=== PATIENT | female | born 1995 | race Two or more races ===

== ENCOUNTER 2021-04-29 22:04 | Emergency (ER) | payer OTHER ==
[2021-04-29 22:25] VITALS: BP 107/72; PULSE 80; RESP 18; TEMP 99.3
--- NOTE | 2021-04-29 23:24 | ED ---
Recheck HPI - General Chief Complaint: Recheck/Abnormal Lab/Rx Stated Complaint: Covid test Time Seen by Provider: 04/29/21 22:20 Source: patient Mode of arrival: ambulatory Limitations: no limitations - History of Present Illness Initial Comments: 25-year-old female presents to the emergency department for Covid testing. She needs this for international travel. No further complaints - Related Data Allergies Allergy/AdvReac Type Severity Reaction Status Date / Time No Known Allergies Allergy Verified 04/29/21 22:22 Review of Systems ROS Statement: Those systems with pertinent positive or pertinent negative responses have been documented in the HPI. ROS Other: All systems not noted in ROS Statement are negative. Past Medical History Past Medical History: No Reported History Additional Past Medical History / Comment(s): brain tumor History of Any Multi-Drug Resistant Organisms: None Reported Additional Past Surgical History / Comment(s): brain surgery Past Psychological History: No Psychological Hx Reported Smoking Status: Never smoker Past Alcohol Use History: Occasional Past Drug Use History: None Reported General Exam Limitations: no limitations General appearance: alert, in no apparent distress Head exam: Present: atraumatic, normocephalic, normal inspection Eye exam: Present: normal appearance Pupils: Present: normal accommodation ENT exam: Present: normal exam, normal oropharynx Neck exam: Present: normal inspection, full ROM Respiratory exam: Present: normal lung sounds bilaterally. Absent: respiratory distress Cardiovascular Exam: Present: regular rate, normal rhythm, normal heart sounds Extremities exam: Present: normal inspection, full ROM Back exam: Present: normal inspection, full ROM Neurological exam: Present: alert, oriented X3, normal gait Psychiatric exam: Present: normal affect, normal mood Skin exam: Present: warm, dry, intact, normal color Course Vital Signs 04/29/21 22:22 Temperature 99.3 F Pulse Rate 80 Respiratory 18 Rate Blood Pressure 107/72 O2 Sat by Pulse 99 Oximetry Medical Decision Making - Medical Decision Making Negative f covid-19d - Lab Data Lab Results 04/29/21 Range/Units 22:26 Coronavirus (PCR) Not Detected (Not Detectd) Disposition Clinical Impression: Lab test negative for COVID-19 virus Disposition: HOME SELF-CARE Condition: Stable Instructions (If sedation given, give patient instructions): Coronavirus Disease 2019 (COVID-19) Additional Instructions: Please return to the Emergency Department if symptoms worsen or any other c oncerns. Is patient prescribed a controlled substance at d/c from ED?: No Referrals: Nonstaff,Physician [Primary Care Provider] - 1-2 days Time of Disposition: 23:24
== END 2021-04-29 23:55 | disposition home or self-care (01) ==
LOC: EC 22:04
DX: Z20.822 Contact with and (suspected) exposure to COVID-19 (principal)
CPT/HCPCS: 87635; 99283